=== PATIENT | female | born 1995 | race Caucasian/White ===

== ENCOUNTER 2020-09-09 13:38 | Emergency (ER) | payer OTHER, SELFPAY ==
[2020-09-09 14:17] VITALS: BP 165/101; PULSE 107; RESP 14; TEMP 37.1; O2SAT 100; BMI 42.9
--- NOTE | 2020-09-09 14:21 | ED_ITS ---
HPI - Extremity Problem General: Chief complaint: Extremity Injury, Lower Stated complaint: Lt foot lac/ pain Time Seen by Provider: 09/09/20 14:15 Source: patient Mode of arrival: ambulatory Limitations: no limitations History of Present Illness: HPI Narrative: 24-year-old female comes in with an abrasion to the lateral left foot. Patient reports that she was walking down into a pool and missed stepped causing her to injure her left foot. Patient reports tenderness to the lateral side of the foot. Patient reports she is weightbearing but has difficulty due to pain. Patient has some superficial abrasions to the skin. Review of Systems General: Reports: 10 or more systems reviewed and unremarkable except in HPI and below Musc: Reports: other (Left foot injury) Physical Exam Const: COMMON NORMALS: no acute distress and patient oriented x3 GENERAL APPEARANCE: cooperative HENMT: COMMON NORMALS: normocephalic and Normal external nose present HEAD & SCALP: normal to inspection and normocephalic NOSE: Normal external nose present MOUTH: Normal oral and palatal mucosa present Eye: GENERAL EYE: appearance normal, both eyes and all related structures Neck/C-Spine: COMMON NORMALS: full ROM Chest: COMMONS NORMALS: normal inspection of the chest Resp: COMMON NORMALS: normal respiratory effort EFFORT & INSPECTION: Yes able to speak in complete sentences Cardio: COMMON NORMALS: regular rate and regular rhythm RATE: regular rate RHYTHM: regular rhythm GI: COMMON NORMALS: non-tender Back/Pelvis: COMMON NORMALS: thoracic and lumbar spine normal to inspection Extremity: COMMON NORMALS: normal to inspection NARRATIVE EXTREMITY EXAM: Superficial abrasion noted to the fifth MTP joint area of the left foot, tenderness and some mild swelling is noted to the lateral left foot. Pulses are intact. Cap refill is intact. Neuro: COMMON NORMALS: patient oriented x3 and moves all extremities Psych: COMMON NORMALS: mental status grossly normal and cooperative Skin: COMMON NORMALS: no rashes or lesions noted GENERAL SKIN EXAM: no rashes or lesions noted Course Vital Signs: Vital signs: Vital Signs Temperature 98.8 F 09/09/20 14:17 Pulse Rate 107 H 09/09/20 14:27 Respiratory Rate 18 09/09/20 14:27 Blood Pressure 165/101 09/09/20 14:27 Pulse Oximetry 97 09/09/20 14:27 MDM - Extremity (Nontraumatic) MDM Narrative: Medical decision making narrative: Patient comes in for injury to the left foot. On exam we note an abrasion and some mild ecchymosis to that lateral left foot. Differential diagnosis includes abrasion contusion and fracture. X-ray noted no fracture or dislocation. Reviewed exam with patient recommendations for treatment for the abrasion and contusion. Patient reports understanding agreed to plan. Patient did request a work note for tonight. Discharge Plan Discharge Patient Disposition: Home Clinical Impression: Abrasion foot/toe Qualifiers: Encounter type: initial encounter Laterality: left Qualified Code(s): S90.812A - Abrasion, left foot, initial encounter Condition: Stable Discharge Orders: Discharge ED (Routine); Ordered 09/09/20 Ordered By: Jose F Guzman Discharge Diet: Usual diet Discharge Activity: Increase activity as tolerated Patient Instructions: Abrasion (ED) Activity Restrictions/Additional Instructions: Wear good supportive shoe. Clean wound twice daily with a little soap and water and apply Vaseline to the wound. Cover wound with a Band-Aid. Monitor wound for signs of infection such as increasing redness and swelling. Follow-up with primary care as needed. Return to the emergency department for new concerns. Stand Alone Forms: Work/School Release Coding Level of Care Code ED General [employer] for [employer] Exam Comprehensive
[2020-09-09 14:27] VITALS: BP 165/101; PULSE 107; RESP 18; O2SAT 97
--- NOTE | 2020-09-09 14:27 | XRR_ITS ---
PROCEDURE INFORMATION: Exam: XR Left Foot Exam date and time: 09/09/2020 2:28 PM Age: 24 years old Clinical indication: Injury or trauma; Fall; Blunt trauma; Foot; Left; Additional info: Injury, pain TECHNIQUE: Imaging protocol: XR Left foot. Views: 3 or more views. COMPARISON: No relevant prior studies available. FINDINGS: Bones/joints: Negative for acute bony abnormality. Soft tissues: Normal. XR/XR foot LT min 3V* [id number] IMPRESSION: No acute findings.
--- NOTE | 2020-09-09 14:29 | PC.NURSE ---
Read and agree with assessment
[2020-09-09 14:59] VITALS: PULSE 87; RESP 16; O2SAT 98
== END 2020-09-09 14:59 | disposition home or self-care (01) ==
PROVIDERS: Emergency Provider Nurse Practitioner Family
DX: S90.812A Abrasion, left foot, initial encounter (principal); X58.XXXA Exposure to other specified factors, initial encounter
CPT/HCPCS: 12345; 73630; 99281; 99282